=== PATIENT | female | born 1935 | race Caucasian/White ===

== ENCOUNTER 2020-10-14 01:35 | Inpatient (IN) | payer MEDICARE, OTHER, SELFPAY ==
[2020-10-14] VITALS (71 sets, daily range): BP systolic 75–212; BP diastolic 47–108; PULSE 44–87; RESP 12–23; TEMP 36.8; O2SAT 89–99; BMI 25.7
--- NOTE | 2020-10-14 02:02 | CTR_ITS ---
PROCEDURE INFORMATION: Exam: CT Abdomen And Pelvis With Contrast Exam date and time: 10/14/2020 2:43 AM Age: 85 years old Clinical indication: Abdominal pain; Generalized; Prior surgery; Surgery date: 6+ months; Surgery type: Gb, hyst; Patient HX: C/O abd pain w n/v then coded; Additional info: Vomiting, abdominal pain TECHNIQUE: Imaging protocol: Computed tomography of the abdomen and pelvis with contrast. Radiation optimization: All CT scans at this facility use at least one of these dose optimization techniques: automated exposure control; mA and/or kV adjustment per patient size (includes targeted exams where dose is matched to clinical indication); or iterative reconstruction. Contrast material: VISI 320; Contrast volume: 95 ml; Contrast route: INTRAVENOUS (IV); COMPARISON: No relevant prior studies available. RADIATION DOSE METRICS: Total DLP (mGy-cm): 1430.27 FINDINGS: Liver: Normal. No mass. Gallbladder and bile ducts: Status post cholecystectomy. There is intra and extrahepatic biliary dilatation seen, the common bile duct measuring 9.7 mm in its midportion. Pancreas: Normal. No ductal dilation. Spleen: Numerous calcifications are seen within the spleen compatible with calcified granulomas. Adrenal glands: Normal. No mass. Kidneys and ureters: Normal. No hydronephrosis. Stomach and bowel: There is a prominent duodenal diverticulum present measuring 2.3 x 3.7 x 3.5 cm located near the ampulla possibly causing extrinsic biliary obstruction. Appendix: The appendix is not seen in today's examination. There are no inflammatory changes seen to suggest appendicitis. Intraperitoneal space: Unremarkable. No free air. No significant fluid collection. Vasculature: Unremarkable. No abdominal aortic aneurysm. Lymph nodes: Unremarkable. No enlarged lymph nodes. Urinary bladder: Pierson catheter is present. The bladder appears decompressed. Reproductive: Status post hysterectomy. Bones/joints: Unremarkable. No acute fracture. Soft tissues: Unremarkable. CT/CT abdomen pelvis w con* [id number] IMPRESSION: 1. There are no acute abdominal findings. 2. 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 Radiation Dose CTDIVOL = (mGy): DLP = 1430.27 (mGy-cm)
--- NOTE | 2020-10-14 02:02 | CTR_ITS ---
PROCEDURE INFORMATION: Exam: CT Head Without Contrast Exam date and time: 10/14/2020 2:43 AM Age: 85 years old Clinical indication: Alteration of consciousness; Other: Unresponsive; Patient HX: Post code TECHNIQUE: Imaging protocol: Computed tomography of the head without contrast. Radiation optimization: All CT scans at this facility use at least one of these dose optimization techniques: automated exposure control; mA and/or kV adjustment per patient size (includes targeted exams where dose is matched to clinical indication); or iterative reconstruction. COMPARISON: No relevant prior studies available. RADIATION DOSE METRICS: Total DLP (mGy-cm): 846.98 FINDINGS: Brain: There is moderate diffuse cerebral atrophy. Patchy areas of hypoattenuation are seen in the deep white matter of the cerebral hemispheres bilaterally compatible with deep white matter microvascular disease. Focal hypoattenuation seen within the caudate head on the right compatible with a chronic lacunar infarction. Cerebral ventricles: No ventriculomegaly. Bones/joints: Unremarkable. No acute fracture. Paranasal sinuses: 5 mm convexity is seen on the posterior aspect of the right maxillary sinus compatible with a small mucous retention cyst. Mastoid air cells: Visualized mastoid air cells are well aerated. Soft tissues: Unremarkable. CT/CT head wo con* [id number] IMPRESSION: There are no acute intracranial findings. Radiation Dose CTDIVOL = (mGy): DLP = 846.98 (mGy-cm)
--- NOTE | 2020-10-14 02:02 | XRR_ITS ---
PROCEDURE INFORMATION: Exam: XR Chest Exam date and time: 10/14/2020 2:15 AM Age: 85 years old Clinical indication: Device placement; Ett placement (vent status); Patient HX: Post code et and og placement; Additional info: Unresponsive TECHNIQUE: Imaging protocol: XR of the chest. Views: 1 view. COMPARISON: CR Chest 1 [place] [id number] 01/21/2018 2:52 PM FINDINGS: Tubes, catheters and devices: An endotracheal tube is placed with its tip approximately 4.2 cm from the lidia. A orogastric tube is present with its tip at least in the proximal stomach. Transcutaneous pacemaker leads overlie the left hemithorax. EKG leads overlie the chest. Lungs: There is some indistinctness of the pulmonary vasculature mild peribronchial cuffing and increased interstitial opacities present in the lower hemithoraces, findings suggesting pulmonary edema. Pleural spaces: Unremarkable. No pleural effusion. No pneumothorax. Heart/Mediastinum: Unremarkable. No cardiomegaly. Bones/joints: Unremarkable. XR/XR chest 1V portable [id number] IMPRESSION: 1. Endotracheal tube tip 4.2 cm from the lidia. 2. Orogastric tube with tip at least in proximal stomach. 3. Findings suggesting pulmonary edema.
--- NOTE | 2020-10-14 02:02 | ECG_ITS ---
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1935 Requested By: Luis Espino Order Number: [id number] Nikki MD: TIN OSBORNE Measurements Intervals [place] Rate: 55 P: 73 IL: 140 QRS: -44 QRSD: 114 T: 87 QT: 478 QTc: 461 Interpretive Statements SINUS BRADYCARDIA LEFT AXIS DEVIATION [QRS AXIS < -30] INCOMPLETE RIGHT BUNDLE BRANCH BLOCK [90+ ms QRS DURATION, TERMINAL R IN V1/V2, 40+ ms S IN I/aVL/V4/V5/V6] LEFT VENTRICULAR HYPERTROPHY AND ST-T CHANGE [VOLTAGE CRITERIA PLUS ST/T ABNORMALITY] Compared to ECG 01/22/2018 05:57:59 Left-axis deviation now present Sinus rhythm no longer present Left anterior fascicular block no longer present ST (T wave) deviation still present Electronically Signed On 10-14-2020 22:24:25 CDT by TIN OSBORNE [id number]
[2020-10-14] MEDS: propofol 1,000 MG/100 ML INJ 8.2 MG (02:14)
[2020-10-14] MEDS: vecuronium 10 mg SDV IVP (02:29)
[2020-10-14 02:33] LABS: Add Urine Microscopic? NO; Charge for UA Resulting for Rev
[2020-10-14] MEDS: DOPamine drip 400 MG/250 ML PREMIX 12.8 MG IV ×2 (02:36→07:53)
[2020-10-14 02:43] LABS: Basophils % 0.3 %; Eosinophils # 0.1 10^3/uL (0.0-0.8); Eosinophils % 1.1 %; Hematocrit 40.2 % (37.0-47.0); Hemoglobin 12.6 g/dL (11.5-15.3); Lymphocytes # 2.3 10^3/uL (0.8-4.8); Mean Corpuscular HGB Conc 31.3 g/dL (30.0-36.0); Mean Corpuscular Volume 92.4 fL (81-99); Mean Platelet Volume 11.8 fL (7.4-10.4); Monocytes # 0.6 10^3/uL (0.2-0.9); Monocytes % 5.4 %; Neutrophils # 7.25 10^3/uL (1.8-7.7); Neutrophils % 69.6 %; Nucleated Red Blood Cells % 0 %; Platelet Count 193 10^3/cmm (130-400); Red Blood Count 4.35 10^6/uL (4.1-5.3); Red Cell Distribution Width 15.1 % (12.1-15.1); White Blood Count 10.4 10^3/uL (4.0-10.0)
--- NOTE | 2020-10-14 02:49 | W.ED.NAVMDI ---
HPI - Nausea/Vomiting/Diarrhea General: Chief complaint: Nausea/Vomiting/Diarrhea Stated complaint: n/v Time Seen by Provider: 10/14/20 01:40 History of Present Illness: HPI Narrative: 85-year-old female presents by EMS from home. Her main complaint was nausea and vomiting. She had been sick a couple of times at home, and gotten generally weak. She did complain of some belly pain as well. She is lethargic on exam, and only answering some questions. She received 4 mg of Zofran only IV on the way here. No vomiting since then. He does state that she has had a hysterectomy, appendectomy, and cholecystectomy in the past. MD elicited complaint: nausea, vomiting and abdominal pain Onset (ago): hour(s) Associated nausea: Yes Associated abdominal pain: Yes Location of pain: Diffuse Radiation: diffuse Pain consistency: constant Severity: moderate Exacerbating factors: movement Relieving factors: none Associated symtoms: Reports altered mental status (Lethargy), nausea and weakness (Generalized); Denies chest pain, cough, fevers/chills, rash or short of breath Review of Systems General: Reports: ROS unobtainable due to mental status Card: Denies: chest pain GI: Reports: nausea PFSH ED PFSH: Medical History ASHD (arteriosclerotic heart disease) CAD (coronary artery disease) LAD stent Dyslipidemia HTN (hypertension) Shingles Surgical History S/P appendectomy S/P cholecystectomy S/P hysterectomy S/P shoulder replacement S/P shoulder surgery Stented coronary artery Family History Father CAD (coronary artery disease) Myocardial infarction Sister CAD (coronary artery disease) Mother Hypertension Social History Smoking and tobacco status: never smoked Household members: spouse Marital status: Physical Exam Const: EXAM LIMITATIONS: altered mental status (Lethargy) GENERAL APPEARANCE: lethargic ORIENTATION/CONSCIOUSNESS: Yes oriented to person, Yes oriented to place and Yes lethargic Chest: COMMONS NORMALS: normal inspection of the chest Resp: COMMON NORMALS: normal respiratory effort, No use of accessory muscles and clear to auscultation bilaterally AUSCULTATION: clear to auscultation bilaterally Cardio: COMMON NORMALS: regular rate and regular rhythm RATE: regular rate RHYTHM: regular rhythm GI: COMMON NORMALS: Normal to inspection, nondistended, normoactive bowel sounds present and Soft to palpation PALPATION: Yes Soft to palpation and Yes Tenderness to palpation present (GI) (diffuse) Neuro: COMMON NORMALS: moves all extremities SENSORIUM/ORIENTATION: Yes oriented to person, Yes oriented to place and Yes lethargic SPEECH: speech normal Procedures Intubation Time out performed: No sedative: Etomidate Mg Given: 20 paralytic: Succinylcholine Mg Given: 100 Laryngoscope: Wendy (4) ET Tube Size: 8 ET Tube Uncuffed: No Tube Secured Depth (cm): 22 Tube Secured Location: lips Tube Placement Confirmation: visualized tube passing through cords, equal breath sounds bilaterally, no breath sounds over epigastrium and confirmation by capnometry Patient Tolerated Procedure: well and no complications Intubation Complications: none Course Consultations: Consultation #1: Raffi Consultation #2: Arabella Vital Signs: Vital signs: Vital Signs Temperature 98.2 F 10/14/20 01:35 Pulse Rate 57 L 10/14/20 06:08 Respiratory Rate 14 10/14/20 06:30 Blood Pressure 122/71 10/14/20 06:08 Pulse Oximetry 95 10/14/20 06:30 MDM - Nausea/Vomiting/Diarrhea MDM Narrative: Medical decision making narrative: 85-year-old female presented with nausea and vomiting. She complained of some belly pain as well. She was a bit lethargic on exam, but able to answer questions. After my examination, she had gotten up to use the bedside and got back in bed with some nursing help. She was hypertensive on arrival. She was talking to one of the nurses, when she suddenly went unresponsive. The patient was found not to have a pulse. CPR was started immediately. Respirations were started with a bag valve mask. She was given 1 mg of epinephrine. Following this, she began to spontaneously breathe, and had a rhythm and first rhythm check of sinus tachycardia. First blood pressure was hypertensive. She was sedated with propofol and fentanyl. She then has become bradycardic and hypotensive. CTs were ordered of the head abdomen and pelvis. They are negative. Her white blood cell count is 10.4. 1112.6. Potassium is 2.8. Her first troponin, which is done after CPR was started is in the mid 200s. He does have a history of coronary disease with stent to the LAD in 2018. Her original presentation is odd given what happened after arrival. Given her troponin elevation, and history, consulted cardiology. She has no ST changes on 2 EKGs. She shows a sinus rhythm. Cardiology recommendations were to admit to ICU. No cath immediately. The hospitalist has come down to see the patient in the ER, and will admit to ICU. Lab Data: Labs: Lab Results 10/14/20 10/14/20 10/14/20 Range/Units 02:16 02:37 02:37 WBC 10.4 H (4.0-10.0) 10^3/ uL RBC 4.35 (4.1-5.3) 10^6/u L Hgb 12.6 (11.5-15.3) g/dL Hct 40.2 (37.0-47.0) % MCV 92.4 (81-99) fL MCH 29.0 (28.0-34.0) pg MCHC 31.3 (30.0-36.0) g/dL RDW 15.1 (12.1-15.1) % Plt Count 193 (130-400) 10^3/c mm MPV 11.8 H (7.4-10.4) fL Neut % (Auto) 69.6 % Lymph % (Auto) 22.0 % [place] % (Auto) 5.4 % Eos % (Auto) 1.1 % Baso % (Auto) 0.3 % Neut # (Auto) 7.25 (1.8-7.7) 10^3/u L Lymph # (Auto) 2.3 (0.8-4.8) 10^3/u L [place] # (Auto) 0.6 (0.2-0.9) 10^3/u L Eos # (Auto) 0.1 (0.0-0.8) 10^3/u L Baso # (Auto) 0.0 (0.0-0.1) 10^3/u L Nucleated RBC % (a uto) 0 % Nucleated RBCs # 0.0 /100WBC D-Dimer (0-0.59) ug/mIFE U Specimen Type Sample Site ABG pH (7.35-7.45) ABG pCO2 (35-45) mmHg ABG pO2 (80.0-100.0) mmH g ABG HCO3 (22-26) mmol/L ABG Base Excess (-2.0-2.0) mmol/ L Aries Test Hematocrit (37-47) % O2 Delivery Device O2 Liters/Min FiO2 % Tidal Volume PEEP cmH20 Manager Balance ID Sodium 141 (136-145) mmol/L Potassium 2.8 L* (3.5-5.1) mmol/L Chloride 102 (98-107) mmol/L Carbon Dioxide 24 (22-29) mmol/L Anion Gap 17.8 (5-19) BUN 18 (8-23) mg/dL Creatinine 0.8 (0.5-0.9) mg/dL GFR Calculation Not Reportable Glucose 181 H (65-115) mg/dL Calculated Osmolal ity 298 H (285-295) mOsm/k g Lactate (0.5-2.2) mmol/L Calcium 8.0 L (8.5-10.5) mg/dL Magnesium (1.7-2.3) mg/dL Total Bilirubin 0.6 (0.15-1.2) mg/dL AST 46 H (0-32) U/L ALT 33 (0-33) U/L Alkaline Phosphata se 97 (35-105) IU/L Creatine Kinase 84 (26-192) U/L Troponin T Baselin e (0-10) ng/L C-Reactive Protein 8.2 H (0.0-4.9) mg/L NT-Pro-B Natriuret Pep 5927 H (0-450) pg/mL Total Protein 6.1 L (6.6-8.7) g/dL Albumin 4.0 (3.5-5.2) g/dL Globulin 2.1 (1.3-4.6) g/dL Lipase 32 (13-60) U/L Urine Color Straw (Yellow) Urine Appearance Clear (CLEAR) Urine pH 7 (5-7) Ur Specific Gravit y 1.005 (1.005-1.030) Urine Protein Neg (Negative) Urine Glucose (UA) Norm (Normal) Urine Ketones Negative (Negative) Urine Blood Neg (Negative) Urine Nitrate Negative (Negative) Urine Bilirubin Neg (Negative) Urine Urobilinogen Norm (Negative) mg/dL Ur Leukocyte Angelia ase Negative (Negative) 10/14/20 10/14/20 10/14/20 Range/Units 02:37 02:37 02:37 WBC (4.0-10.0) 10^3/ uL RBC (4.1-5.3) 10^6/u L Hgb (11.5-15.3) g/dL Hct (37.0-47.0) % MCV (81-99) fL MCH (28.0-34.0) pg MCHC (30.0-36.0) g/dL RDW (12.1-15.1) % Plt Count (130-400) 10^3/c mm MPV (7.4-10.4) fL Neut % (Auto) % Lymph % (Auto) % [place] % (Auto) % Eos % (Auto) % Baso % (Auto) % Neut # (Auto) (1.8-7.7) 10^3/u L Lymph # (Auto) (0.8-4.8) 10^3/u L [place] # (Auto) (0.2-0.9) 10^3/u L Eos # (Auto) (0.0-0.8) 10^3/u L Baso # (Auto) (0.0-0.1) 10^3/u L Nucleated RBC % (a uto) % Nucleated RBCs # /100WBC D-Dimer 8.50 H (0-0.59) ug/mIFE U Specimen Type Sample Site ABG pH (7.35-7.45) ABG pCO2 (35-45) mmHg ABG pO2 (80.0-100.0) mmH g ABG HCO3 (22-26) mmol/L ABG Base Excess (-2.0-2.0) mmol/ L Aries Test Hematocrit (37-47) % O2 Delivery Device O2 Liters/Min FiO2 % Tidal Volume PEEP cmH20 Manager Balance ID Sodium (136-145) mmol/L Potassium (3.5-5.1) mmol/L Chloride (98-107) mmol/L Carbon Dioxide (22-29) mmol/L Anion Gap (5-19) BUN (8-23) mg/dL Creatinine (0.5-0.9) mg/dL GFR Calculation Glucose (65-115) mg/dL Calculated Osmolal ity (285-295) mOsm/k g Lactate 3.6 H (0.5-2.2) mmol/L Calcium (8.5-10.5) mg/dL Magnesium (1.7-2.3) mg/dL Total Bilirubin (0.15-1.2) mg/dL AST (0-32) U/L ALT (0-33) U/L Alkaline Phosphata se (35-105) IU/L Creatine Kinase (26-192) U/L Troponin T Baselin e 246 H* (0-10) ng/L C-Reactive Protein (0.0-4.9) mg/L NT-Pro-B Natriuret Pep (0-450) pg/mL Total Protein (6.6-8.7) g/dL Albumin (3.5-5.2) g/dL Globulin (1.3-4.6) g/dL Lipase (13-60) U/L Urine Color (Yellow) Urine Appearance (CLEAR) Urine pH (5-7) Ur Specific Gravit y (1.005-1.030) Urine Protein (Negative) Urine Glucose (UA) (Normal) Urine Ketones (Negative) Urine Blood (Negative) Urine Nitrate (Negative) Urine Bilirubin (Negative) Urine Urobilinogen (Negative) mg/dL Ur Leukocyte Angelia ase (Negative) 10/14/20 10/14/20 10/14/20 Range/Units 02:37 03:40 05:10 WBC (4.0-10.0) 10^3/ uL RBC (4.1-5.3) 10^6/u L Hgb (11.5-15.3) g/dL Hct (37.0-47.0) % MCV (81-99) fL MCH (28.0-34.0) pg MCHC (30.0-36.0) g/dL RDW (12.1-15.1) % Plt Count (130-400) 10^3/c mm MPV (7.4-10.4) fL Neut % (Auto) % Lymph % (Auto) % [place] % (Auto) % Eos % (Auto) % Baso % (Auto) % Neut # (Auto) (1.8-7.7) 10^3/u L Lymph # (Auto) (0.8-4.8) 10^3/u L [place] # (Auto) (0.2-0.9) 10^3/u L Eos # (Auto) (0.0-0.8) 10^3/u L Baso # (Auto) (0.0-0.1) 10^3/u L Nucleated RBC % (a uto) % Nucleated RBCs # /100WBC D-Dimer (0-0.59) ug/mIFE U Specimen Type Arterial Collet Making Machine Operator Sample Site Radial, right Collet Making Machine Operator ABG pH 7.34 L Collet Making Machine Operator (7.35-7.45) ABG pCO2 51.0 H Collet Making Machine Operator (35-45) mmHg ABG pO2 67.8 L Collet Making Machine Operator (80.0-100.0) mmH g ABG HCO3 27.7 H Collet Making Machine Operator (22-26) mmol/L ABG Base Excess 1.1 Collet Making Machine Operator (-2.0-2.0) mmol/ L Aries Test Pos Collet Making Machine Operator Hematocrit 44.2 Collet Making Machine Operator (37-47) % O2 Delivery Device Vent Collet Making Machine Operator O2 Liters/Min Collet Making Machine Operator FiO2 40.0 % Tidal Volume 0.35 PEEP 8.0 cmH20 Manager Balance ID [email or web address] Collet Making Machine Operator Sodium (136-145) mmol/L Potassium (3.5-5.1) mmol/L Chloride (98-107) mmol/L Carbon Dioxide (22-29) mmol/L Anion Gap (5-19) BUN (8-23) mg/dL Creatinine (0.5-0.9) mg/dL GFR Calculation Glucose (65-115) mg/dL Calculated Osmolal ity (285-295) mOsm/k g Lactate (0.5-2.2) mmol/L Calcium (8.5-10.5) mg/dL Magnesium 1.7 (1.7-2.3) mg/dL Total Bilirubin (0.15-1.2) mg/dL AST (0-32) U/L ALT (0-33) U/L Alkaline Phosphata se (35-105) IU/L Creatine Kinase (26-192) U/L Troponin T Baselin e (0-10) ng/L C-Reactive Protein (0.0-4.9) mg/L NT-Pro-B Natriuret Pep (0-450) pg/mL Total Protein (6.6-8.7) g/dL Albumin (3.5-5.2) g/dL Globulin (1.3-4.6) g/dL Lipase (13-60) U/L Urine Color (Yellow) Urine Appearance (CLEAR) Urine pH (5-7) Ur Specific Gravit y (1.005-1.030) Urine Protein (Negative) Urine Glucose (UA) (Normal) Urine Ketones (Negative) Urine Blood (Negative) Urine Nitrate (Negative) Urine Bilirubin (Negative) Urine Urobilinogen (Negative) mg/dL Ur Leukocyte Angelia ase (Negative) Critical Care Time Critical Care Time: Critical Care Time: Yes Total Critical Care Time: 50 Attestation: This case had a high probability of a clinically significant, sudden, or life threatening deterioration of this patient's condition which required my full and direct attention, intervention and personal management. Discharge Plan Discharge Patient Disposition: Admitted As Inpatient Admit Provider: Phoebe Nugent Clinical Impression: PEA (Pulseless electrical activity), NSTEMI (non-ST elevated myocardial infarction), Hypokalemia Condition: Critical Coding Level of Care Code ED Legal Office Administrator for Shann[place] Fwd Exam Detailed
[2020-10-14] MEDS: iodixanol 320 mg/mL 100mL Btl IV ×2 (02:57→14:32)
[2020-10-14 02:59] LABS: Bilirubin Urine Neg (Negative); Blood Urine Neg (Negative); Glucose Urine UA Norm (Normal); Ketones Urine Negative (Negative); Leukocyte Esterase Urine Negative (Negative); Nitrate Urine Negative (Negative); Protein Urine Neg (Negative); Specific Gravity, Urine 1.005 (1.005-1.030); Urine Appearance Clear (CLEAR); Urine Color Straw (Yellow); Urobilinogen Urine Norm (Negative); pH Urine 7 (5-7)
[2020-10-14 03:03] LABS: Lactate (Lactic Acid level) 3.6 mmol/L (0.5-2.2)
[2020-10-14 03:09] LABS: Troponin(5th) Baseline 246 ng/L (0-10)
[2020-10-14 03:13] LABS: Alanine Aminotransferase 33 U/L (0-33); Alkaline Phosphatase 97 IU/L (35-105); Anion Gap 17.8 (5-19); Aspartate Amino Transferase 46 U/L (0-32); Blood Urea Nitrogen 18 mg/dL (8-23); C Reactive Protein 8.2 mg/L (0.0-4.9); Carbon Dioxide 24 mmol/L (22-29); Chloride 102 mmol/L (98-107); Creatine Phosphokinase 84 U/L (26-192); Globulin 2.1 g/dL (1.3-4.6); Glucose 181 mg/dL (65-115); Lipase 32 U/L (13-60); NT Pro B Type Natriuretic Pept 5927 pg/mL (0-450); Osmolality Calculated 298 mOsm/kg (285-295); Sodium 141 mmol/L (136-145); Total Bilirubin 0.6 mg/dL (0.15-1.2); Total Protein 6.1 g/dL (6.6-8.7)
[2020-10-14 03:19] LABS: Potassium 2.8 mmol/L (3.5-5.1)
[2020-10-14 03:46] LABS: ABG PH Result 7.34 (7.35-7.45); Arterial Blood Gas Hematocrit 44.2 % (37-47); Base Excess ABG 1.1 mmol/L (-2.0-2.0); Blood Gas Allen Test Pos; Blood Gas Sample Site Radial, right; Blood Gas Sample Type Arterial; Blood Gas Tidal Volume 0.35; HCO3 ABG 27.7 mmol/L (22-26); Oxygen Device VENT; PO2 ABG 67.8 mmHg (80.0-100.0)
[2020-10-14] MEDS: sodium chloride 0.9% 1,000 ML 200 ML IV (03:50)
--- NOTE | 2020-10-14 04:02 | ECG_ITS ---
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1935 Requested By: Luis Espino Order Number: [id number] Nikki MD: TIN OSBORNE Measurements Intervals [place] Rate: 99 P: 76 SC: 166 QRS: -52 QRSD: 98 T: 94 QT: 342 QTc: 440 Interpretive Statements SINUS RHYTHM WITH OCCASIONAL SUPRAVENTRICULAR PREMATURE COMPLEXES POSSIBLE RIGHT ATRIAL ENLARGEMENT [0.25mV P WAVE] POSSIBLE LEFT ATRIAL ENLARGEMENT [-0.1mV P WAVE IN V1/V2] LEFT ANTERIOR FASCICULAR BLOCK [QRS AXIS <= -45, QR IN I, RS IN II] LEFT VENTRICULAR HYPERTROPHY AND ST-T CHANGE [VOLTAGE CRITERIA PLUS ST/T ABNORMALITY] Compared to ECG 01/22/2018 05:57:59 Incomplete right bundle-branch block no longer present ST (T wave) deviation still present Electronically Signed On 10-14-2020 22:26:58 CDT by TIN OSBORNE [id number] ilsa
--- NOTE | 2020-10-14 04:03 | PC.NURSE ---
Upon patient arrival to ER, patient was complaining of n/v with abdominal pain and headache. Patient was alert and oriented to person and place but not time. Patient requested to use bathroom and I brought a bedside commode to bedside and assisted patient to bedside commode. Patient was then assisted back to bed. Patient requested a blanket due to being cold. I walked to warmer and got patient blanket. SHARON Blackmon was in the room with patient at approx 0150. Patient became unresponsive with agonal respirations and had a weak pulse at approx 0152. Dr. Perry called into room. At 0154 patient became pulseless and apneic and brigid romero was called.
[2020-10-14] MEDS: potassium chloride premix 100 ML 25 MEQ IV ×2 (04:17→10:30)
--- NOTE | 2020-10-14 04:42 | PC.NURSE ---
This nurse walked into patients room at 0149 and started asking patient assessment questions. patient was awake and responding to nurse at this time. patient answered a few questions from nurse then stopped talking and closed her eyes. SHARON Presley entered room and patient became unresponsive with agonal respirations with weak pulse at 0152. Dr Perry was called to room. At 0154 patient became pulseless and brigid romero was called.
--- NOTE | 2020-10-14 04:45 | P.HP_ITS ---
Providers/Chief Complaint Primary Care Provider: Shyam Dumont DO Chief Complaint: n/v History of Present Illness Vannesa Stanford is a 85 year old female with established history of coronary disease status post stent in LAD(2010 was found to have a 50% stenosis in the mid LAD prior to previously placed stent. She had 20% in-stent stenosis and then a 50% stenosis in the distal LAD. She had a small diagonal branch exhibiting a 60% ostial narrowing. She had mild plaquing in a circumflex system. The right coronary artery was a tiny, nondominant vessel. ) Presented today with chief complaint of nausea and vomiting. Patient presented from her home with chief complaint of nausea and vomiting, in total she has had 3-4 episodes, in the ER she received fluid resuscitation with Zofran, initially she was very lethargic, ER physician just stepped out to place some orders and nurse was trying to assist her to use bedside commode when she became unresponsive and lost her pulse, immediately CPR was initiated, she received 1 dose of epinephrine after 3 minutes ROSC was obtained, her breathing was agonal, she had gag reflex, however was intubated by Dr. Perry, initial blood pressure 240/120 mmHg which dropped and necessitated vasopressors currently she is on dopamine blood pressure 129/76MMHG heart rate 71, saturating 97% on ventilator, hypokalemia 2.8 noted EKG showing sinus rhythm without ST elevation, troponin was drawn after her code which is aboVE 200, case was discussed with cardiology, Dr. Rankin did not recommend angiogram. After ROSC, gag reflex noted, she was moving her extremities and was agitated, TTM not pursued. For sedation she was put on fentanyl and propofol At the time of my evaluation she was saturating well on CMV settings 400 FiO2 40% PEEP of 5 blood pressure 122/76mmhg, propofol at the bedside, endotracheal tube size 8, at lip bite 22 cm patient has right IO that was placed during the code which will be removed in the ER, first dose of therapeutic Lovenox given in the ER, ruled in for NSTEMI, potassium repleted , CT head, abdomen pelvis and chest x-ray result reviewed I called her Mr. He Stanford, he is stating that Ms. Stanford was complaining of chest pain on exertion for quite some time but last night she was experiencing multiple episodes of emesis, he is not sure whether she had any chest pain yesterday but she was diaphoretic and hence brought to the ER for further evaluation. Review of Systems General: Reports: ROS unobtainable due to endotracheal tube Medications/Allergies Home Medications Medication Instructions Recorded Confirmed Last Taken Type aspirin 81 mg tablet,delayed 81 mg PO DAILY 09/13/19 04/25/20 Unknown History release atenolol 50 mg tablet 50 mg PO BID 09/13/19 04/25/20 Unknown History cholecalciferol (vitamin D3) 100 4,000 unit PO DAILY 09/13/19 04/25/20 Unknown History mcg (4,000 unit) tablet fluoxetine 20 mg tablet 20 mg PO DAILY 09/13/19 04/25/20 Unknown History irbesartan 300 mg tablet 300 mg PO DAILY 30 Days #30 tab 10/05/19 04/25/20 Unknown Rx donepezil 5 mg tablet 5 mg PO DAILY 04/25/20 04/25/20 Unknown History Allergies Allergy/AdvReac Type Severity Reaction Status Date / Time codeine Allergy Unknown Unknown Verified 10/14/20 02:31 morphine Allergy Unknown Unknown Verified 10/14/20 02:31 PFSH Acute PFSH: Medical History ASHD (arteriosclerotic heart disease) CAD (coronary artery disease) LAD stent Dyslipidemia HTN (hypertension) Shingles Surgical History S/P appendectomy S/P cholecystectomy S/P hysterectomy S/P shoulder replacement S/P shoulder surgery Stented coronary artery Family History Father CAD (coronary artery disease) Myocardial infarction Sister CAD (coronary artery disease) Mother Hypertension Social History Smoking and tobacco status: never smoked Household members: spouse Marital status: Vitals/I&O/Wt Last Vital Signs Temp 98.2 F 10/14/20 01:35 Pulse 68 10/14/20 03:45 Resp 16 10/14/20 04:00 BP 111/65 10/14/20 03:45 Pulse Ox 91 10/14/20 03:45 10/13/20 10/13/20 10/14/20 14:59 22:59 06:59 Intake Total 12.629 / 12.629 Balance 12.629 / 12.629 Weight last 48 hrs Weight 68.039 kg Physical Exam Narrative: EXAM NARRATIVE: elderly female Intubated and sedated Currently on mechanical ventilator status post PEA Right IO Propofol running through peripheral IV Cold extremities, no active signs of ischemic ulcers S1, S2 no murmur appreciated, sinus bradycardia Assisted breath sounds currently on mechanical ventilator CMV setting PEEP 5 FiO2 40% tidal volume 400, endotracheal tube size 8 secured at lip by 22 cm Neuro exam limited currently sedated and intubated, however did show black reflux and was moving her extremities after intubation that required sedation with propofol and fentanyl Urinary Catheter Management^: Pierson: Cath Placed During This Visit: yes Urinary Catheter Date of Insertion: 10/14/20 Urinary Catheter Time of Insertion: 02:16 Data : 10/14/20 02:37 10/14/20 02:37 A&P Assessment and plan (1) PEA (Pulseless electrical activity): Status: Acute (2) Hypokalemia: Status: Acute (3) Respiratory failure: Status: Acute (4) NSTEMI (non-ST elevated myocardial infarction): Status: Acute Additional A&P Information PEA &Respiratory failure requiring mechanical ventilator Acute hypoxic hypercarbic respiratory failure, pulmonary edema with underlying hypertensive emergency Ruled in for NSTEMI Started ACS protocol, rule out PE will request D-dimer, relative hypoxia and hypokalemia definitely contributing factors for her PEA, Serial EKG and troponin, case was discussed with cardiology, no urgent angiogram recommended After ROSC, gag reflex noted, she was moving her extremities and was agitated required sedation with propofol and fentanyl, TTM protocol not pursued Etiology seems to be NSTEMI, hypoxia, hypokalemia, hypertensive emergency, she has history of stent in LAD in 2009, EKG showing sinus bradycardia, troponin above 200, started therapeutic dose of Lovenox along aspirin Plavix, hold off on adding Toprol because of bradycardia and lisinopril because of hypotension CT head unremarkable Would use Levophed and dopamine for now, will start Lasix once her blood pressure is better, chest x-ray consistent with pulmonary edema echo reveals preserved ejection fraction grade 1 diastolic dysfunction mild aortic and mitral valve regurgitation, echo 12 revealed preserved ejection fraction grade 1 diastolic dysfunction mild aortic and mitral regurgitation, most likely will need coronary angiogram, cardiology consulted Full code, discussed with her Family updated Start tube feeding within 24 hours DVT prophylaxis not indicated due to therapeutic use Lovenox Attestations Medical Necessity Statement*: Anticipating stay in the hospital cross more than 2 midnights, currently intubated and sedated had a PEA for 3 minutes in the ER Time Spent in Patient Care: 40mins Coding Level of Care Code Acute [employer] 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
[2020-10-14] MEDS: enoxaparin 80 mg/0.8 mL Syringe 70 MG SUBCUT ×2 (05:25→17:26)
[2020-10-14 05:48] LABS: Magnesium 1.7 mg/dL (1.7-2.3)
--- NOTE | 2020-10-14 05:59 | USCV_ITS ---
Abdoulaye Vannesa Age: 85 Gender: F : 1935 Exam Date: 10/14/2020 11:19 Ordering Phys: Phoebe Nugent MD Technologist: Neida Raphael Exam Location: [facility] – [place] Indication: Post code BP: 122 / 71 HR: 53 Rhythm: Sinus Technical Quality: Adequate MEASUREMENTS (Male / Female) Normal Values 2D ECHO LV Diastolic Diameter PLAX 4.0 cm 4.2 - 5.9 / 3.9 - 5.3 cm LV Systolic Diameter PLAX 3.1 cm LV Chamber Size 3.6 cm IVS Diastolic Thickness 1.8 cm 0.6 - 1.0 / 0.6 - 0.9 cm IVS Systolic Thickness 2.0 cm LVPW Diastolic Thickness 1.2 cm 0.6 - 1.0 / 0.6 - 0.9 cm LVPW Systolic Thickness 2.0 cm RV Chamber Size 2.8 cm LVOT Diameter 1.5 cm LV Ejection Fraction 2D Teich 45.0 % LV Ejection Fraction MOD 2C 58.9 % LV Ejection Fraction 2C AL 62.3 % LA Diameter 3.5 cm LA Width 4.5 cm LA Height 6.3 cm RA Width 2.5 cm RA Height 4.9 cm Aorta at Sinotubular Diameter 2.4 cm M-MODE LV Diastolic Diameter MM 5.0 cm 4.2 - 5.9 / 3.9 - 5.3 cm LV Systolic Diameter MM 3.9 cm LV Ejection Fraction MM Teich 42.4 % IVS Diastolic Thickness MM 1.1 cm 0.6 - 1.0 / 0.6 - 0.9 cm IVS Systolic Thickness MM 1.3 cm LVPW Diastolic Thickness MM 1.4 cm 0.6 - 1.0 / 0.6 - 0.9 cm LVPW Systolic Thickness MM 1.8 cm Aortic Annulus Diameter 3.3 cm LA Ao Ratio MM 1.2 MV E Point Septal Separation 0.8 cm DOPPLER AV Peak Velocity 422.8 cm/s LVOT Peak Velocity 98.0 cm/s AV Area Cont Eq vti 0.4 cm squared AV Area Cont Eq pk 0.4 cm squared MV Peak Velocity 104.0 cm/s MV Area PHT 3.1 cm squared Mitral E to A Ratio 1.4 MV E' Velocity 55.0 cm/s Mitral E to MV E' Ratio 28.4 Mitral E to LV E' Lateral Ratio 22.9 Mitral E to LV E' Septal Ratio 39.0 TV Peak E Velocity 30.0 cm/s Right Atrial Pressure 15.0 mmHg PV Peak Velocity 80.0 cm/s QpQs Shunt Ratio 1.9 RV Acceleration Time 0.1 s RV Ejection Time 0.3 s RV AcT/ET 0.3 FINDINGS Left Ventricle Normal left ventricular cavity size. Severe left ventricular hypertrophy of concentric type. Normal left ventricular systolic function. Left ventricular ejection fraction is estimated at 55 %. Grade II/IV diastolic dysfunction, moderately elevated filling pressures. Right Ventricle The right ventricle is normal in size and function. Right Atrium The right atrium is normal in size. Left Atrium Moderately increased left atrial size. Mitral Valve Severely thickened mitral valve. Severe mitral annular calcification. Aortic Valve Severe aortic valve calcification. Critical aortic valve stenosis, mean gradient 43.8 mmHg, KEIRA 0.36 cm squared. Velocity across the aortic valve is 4.2 m/s.mild aortic valve regurgitation. Tricuspid Valve No tricuspid valve regurgitation. Pulmonic Valve Structurally normal pulmonic valve without significant stenosis. There is no pulmonic regurgitation. Pericardium Normal pericardium without effusion. Aorta Normal ascending aorta dimension. CONCLUSIONS 1-Normal left ventricular cavity size. Severe left ventricular hypertrophy of concentric type. Normal left ventricular systolic function. Left ventricular ejection fraction is estimated at 55 %. Grade II/IV diastolic dysfunction, moderately elevated filling pressures. 2-Severe aortic valve calcification. Critical aortic valve stenosis, mean gradient 43.8 mmHg, KEIRA 0.36 cm squared. Velocity across the aortic valve is 4.2 m/s.mild aortic valve regurgitation. 3-Moderately increased left atrial size. 4-Severely thickened mitral valve. Severe mitral annular calcification. 5-Severe aortic valve calcification. Critical aortic valve stenosis, mean gradient 43.8 mmHg, KEIRA 0.36 cm squared. Velocity across the aortic valve is 4.2 m/s.mild aortic valve regurgitation. 6-No tricuspid valve regurgitation. 7-Right atrial pressure is around 20 mm of mercury. Please note that patient is on ventilator 8-There are no prior echocardiogram studies to compare. Phoebe Bell MD (Electronically Signed) Final Date: 14 Oct 2020 19:58 S
--- NOTE | 2020-10-14 06:22 | CTR_ITS ---
PROCEDURE INFORMATION: Exam: CTA Chest With Contrast Exam date and time: 10/14/2020 2:09 PM Age: 85 years old Clinical indication: Shortness of breath; Additional info: Pea TECHNIQUE: Imaging protocol: Computed tomographic angiography of the chest with contrast. 3D rendering (Not supervised by radiologist): MIP and/or 3D reconstructed images were created by the technologist. Radiation optimization: All CT scans at this facility use at least one of these dose optimization techniques: automated exposure control; mA and/or kV adjustment per patient size (includes targeted exams where dose is matched to clinical indication); or iterative reconstruction. Contrast material: VISIPAQUE 320; Contrast volume: 75 ml; Contrast route: INTRAVENOUS (IV); COMPARISON: CR XR chest 1V portable [id number] 10/14/2020 2:11 AM RADIATION DOSE METRICS: Total DLP (mGy-cm): 594.97 FINDINGS: Tubes, catheters and devices: ET tube tip terminates superior to the lidia. Distal G-tube tip is positioned in the stomach. Pulmonary arteries: Normal. No pulmonary emboli. Aorta: There are calcifications in the aortic and mitral valves. Lungs: There are pulmonary parenchymal calcifications consistent with remote granulomatous organism exposure. Pleural spaces: There are bilateral pleural effusions with underlying compressive atelectasis or infiltrate. Heart: Cardiomegaly. Multivessel atherosclerotic disease which involves the coronary arteries. Lymph nodes: There are calcified mediastinal and perihilar lymph nodes consistent with prior granulomatous exposure. Bones/joints: There are degenerative changes in the visualized spine. Soft tissues: Unremarkable. Other findings: Please see the CT scan of the abdomen for description of the upper abdomen. CT/CT angio chest PE protcl [id number] IMPRESSION: 1. No evidence for pulmonary embolus. 2. There are bilateral pleural effusions with underlying compressive atelectasis or infiltrate. In combination with cardiomegaly, findings raise concern for congestive heart failure. 3. Multivessel atherosclerotic disease which involves the coronary arteries. Radiation Dose CTDIVOL = (mGy): DLP = 594.97 (mGy-cm)
--- NOTE | 2020-10-14 07:13 | PC.NURSE ---
ASSUMING CARE Patient received from ER by RN and RT. 8.0 tube, 23 cm at lip, FiO2 40%, TV 400, Rate 14, PEEP 5. Patient is arousable to stimuli but does not follow commands. IO to right shoulder. Pierson catheter in place and draining. Dopamine running at 5 mcg/kg/min, propofol at 10 mcg/kg/min, fentanyl at 100 mcg/hour, and a k-rider running.
[2020-10-14 07:26] LABS: Thyroid Stimulating Hormone 6.36 uIU/mL (0.27-4.20)
[2020-10-14] MEDS: propofol 1,000 MG/100 ML INJ 10.2 MG IV ×3 (07:48→23:05)
[2020-10-14] MEDS: ipratropium-albuterol 3 mL Neb INHALATION ×2 (08:02→19:33)
--- NOTE | 2020-10-14 08:02 | ECG_ITS ---
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1935 Requested By: Luis Espino Order Number: [id number] Nikki MD: TIN OSBORNE Measurements Intervals [place] Rate: 52 P: 79 MI: 145 QRS: -38 QRSD: 105 T: 94 QT: 488 QTc: 454 Interpretive Statements SINUS BRADYCARDIA MARKED LEFT AXIS DEVIATION [QRS AXIS < -30] INCOMPLETE RIGHT BUNDLE BRANCH BLOCK [90+ ms QRS DURATION, TERMINAL R IN V1/V2, 40+ ms S IN I/aVL/V4/V5/V6] LEFT VENTRICULAR HYPERTROPHY AND ST-T CHANGE [VOLTAGE CRITERIA PLUS ST/T ABNORMALITY] POSSIBLE SEPTAL MYOCARDIAL INFARCTION [30 ms Q WAVE IN V1/V2], OF INDETERMINATE AGE Compared to ECG 10/14/2020 02:26:21 Myocardial infarct finding now present ST (T wave) deviation still present Electronically Signed On 10-14-2020 22:26:43 CDT by TIN OSBORNE [id number]
[2020-10-14] MEDS: atorvastatin 40 mg Tablet 80 MG PO (08:11)
[2020-10-14] MEDS: clopidogrel 75 mg Tablet PO (08:11)
[2020-10-14] MEDS: aspirin 81 mg EC Tablet PO (08:11)
[2020-10-14 09:10] LABS: Basophils # 0.1 10^3/uL (0.0-0.1); Basophils % 0.3 %; Eosinophils % 0.1 %; Hematocrit 46.2 % (37.0-47.0); Hemoglobin 14.4 g/dL (11.5-15.3); Lymphocytes # 1.5 10^3/uL (0.8-4.8); Lymphocytes % 8.9 %; Mean Corpuscular HGB Conc 31.2 g/dL (30.0-36.0); Mean Corpuscular Volume 93.1 fL (81-99); Mean Platelet Volume 11.9 fL (7.4-10.4); Monocytes # 1.8 10^3/uL (0.2-0.9); Monocytes % 10.5 %; Neutrophils # 13.78 10^3/uL (1.8-7.7); Neutrophils % 79.6 %; Nucleated Red Blood Cells % 0 %; Platelet Count 160 10^3/cmm (130-400); Red Blood Count 4.96 10^6/uL (4.1-5.3); Red Cell Distribution Width 15.3 % (12.1-15.1); White Blood Count 17.3 10^3/uL (4.0-10.0)
--- NOTE | 2020-10-14 10:05 | P.PN_ITS ---
Subjective Subjective: Interval history: Overnight labs and H&P reviewed, continues to have sinus bradycardia this morning with heart rate ranging between 50-60, remains intubated and on mechanical ventilation, vent settings currently at 30% FiO2/tidal volume 400/PEEP 5. Pending CTA of the chest. Continues to be on dopamine currently at 5 mics. 300 cc urine output in bag. 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, sedated EXT: No LE edema Urinary Catheter Management^: Pierson: Cath Placed During This Visit: yes Reason for Continuing Indwelling Catheter: Accurate Measurement of Urinary Output in Critically Ill Patients Urinary Catheter Date of Insertion: 10/14/20 Urinary Catheter Time of Insertion: 02:16 Data : 10/14/20 08:50 10/14/20 02:37 A&P Assessment and plan (1) PEA (Pulseless electrical activity): Status: Acute (2) Hypokalemia: Status: Acute (3) Respiratory failure: Status: Acute Qualifiers: Chronicity: acute Respiratory failure complication: hypoxia Qualified Code(s): J96.01 - Acute respiratory failure with hypoxia (4) NSTEMI (non-ST elevated myocardial infarction): Status: Acute (5) CHF (congestive heart failure): Status: Acute Qualifiers: Heart failure type: unspecified Heart failure chronicity: acute Qualified Code(s): I50.9 - Heart failure, unspecified Additional A&P Information 85 year old lady with PMH CAD s/p multiple stents presented to the ER yesterday with c/o intractable nausea and vomiting with a background history of having chest discomfort over the past week or so per family. While in the ER noted to have witnessed cardiac arrest with PEA, underwent CPR for about 3 minutes with ROSC. Remains intubated thereafter. Currently also on pressor support with dopamine. Labs obtained post CPR with elevated troponin at 200, difficult to a certain if patient initially presented with elevated troponins pointing towards NSTEMI versus of troponin are elevated post CPR. However given several past cardiac risk factors and history, presumed cardiac event. Continuing aspirin 81, Plavix, full dose Lovenox 1 mg/kg every 12 hours. D-dimer also noted to be elevated, symptoms could alternately be related to PE, pending CTA of the chest this afternoon. Currently on anticoagulation for the same. Echocardiogram pending. No current evolving EKG changes Plan for today is to continue management as above for ACS, evaluate for PE. Leukocytosis increased at 17, likely post CPR, per reported history no antecedent history of fever cough or dyspnea. Chest x-ray with pulmonary edema, likely related to CHF. Receiving 20 mg of IV Lasix today, monitor urine output closely. CT abdomen without signs of acute intra-abdominal issues Attestations Medical Necessity Statement*: s/p cardiac arrest, currently needs respiratoiry support with mechanical ventilation and pressor support for blood pressure Critical Care Time: The high probability of a clinically significant, sudden or life threatening deterioration of the patient's [cardiac, respiratory] system(s) required my full and direct attention, intervention and personal management. The critical care time is as shown. This time is in addition to time spent performing any reported procedures but includes the following: [x] Data and vital sign review and interpretation [x] Patient assessment, examination and intervention [x] Documentation [x] Medication orders and management Critical Care Time (min): 40 Coding Level of Care Code Acute Community Marketing Coordinator for g Fwd Diagnoses PEA (Pulseless electrical activity) I46.9 Hypokalemia E87.6 Respiratory failure J96.01 Chronicity: acute Respiratory failure complication: hypoxia NSTEMI (non-ST elevated myocardial infarction) I21.4 CHF (congestive heart failure) I50.9 Heart failure type: unspecified Heart failure chronicity: acute
[2020-10-14] MEDS: FUROsemide 10 mg/mL SDV 2mL 20 MG IVP (10:30)
[2020-10-14 10:56] LABS: Troponin T (5th) Once 802 ng/L (0-10)
[2020-10-14 10:56] LABS: ABG PCO2 38.1 mmHg (35-45); ABG PH Result 7.48 (7.35-7.45); Alveolar-Arterial Oxygen Gradi 7.7 mmHg (5-10); Arterial Blood Gas Hematocrit 42.1 % (37-47); Base Excess ABG 4.6 mmol/L (-2.0-2.0); Blood Gas Allen Test Pos; Blood Gas Operator Identificat GD; Blood Gas Sample Site Radial, right; Blood Gas Sample Type Arterial; Carboxyhemoglobin 0.7 %THgb (0.4-20.1); HCO3 ABG 28.3 mmol/L (22-26); HGB O2 Sat 93.1 % (95-100); Ionized Calcium Level - ABG 1.1 mmol/L (1.1-1.4); Methemoglobin 0.5 % (0.4-1.5); Oxygen Device VENT; Oxygen Saturation ABG 94.2; PO2 ABG 63.4 mmHg (80.0-100.0); Potassium Level - ABG 3.1 mmol/L (3.5-5.0); Total Hemoglobin 13.7 g/dL (12-16)
--- NOTE | 2020-10-14 10:59 | ECG_ITS ---
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: : 1935 Requested By: Nina Hayward Order Number: [id number] Reading MD: TIN OSBORNE Measurements Intervals [place] Rate: 56 P: 74 [place]: 158 QRS: -30 QRSD: 105 T: 102 QT: 519 QTc: 503 Interpretive Statements SINUS BRADYCARDIA BORDERLINE LEFT AXIS DEVIATION [QRS AXIS < -20] LEFT VENTRICULAR HYPERTROPHY AND ST-T CHANGE [VOLTAGE CRITERIA PLUS ST/T ABNORMALITY] Compared to ECG 10/14/2020 09:34:00 Incomplete right bundle-branch block no longer present Myocardial infarct finding no longer present ST (T wave) deviation still present Electronically Signed On 10-14-2020 22:23:27 CDT by TIN OSBORNE [email or web address] systemAdhysteriasumma [facility].[employer]/store/OM/[id number]
[2020-10-14 11:00] LABS: Influenza A by IFA Negative (Negative); Influenza B by IFA Negative (Negative)
[2020-10-14 11:01] LABS: SARS Covid-2 Antigen Negative (Negative)
[2020-10-14 11:23] LABS: Free T4 Free Thyroxine 1.31 ng/dL (0.82-1.77); T3 Free 2.7 PG/ML (2.0-4.4)
--- NOTE | 2020-10-14 12:19 | P.CONIM_ITS ---
Providers/Reason For Consult Consulting Physican/Specialty*: Cardiology Reason for Consult*: Cardiac arrest, shock Attending Physician: Nina Hayward MD Primary Care Provider: Shyam Dumont DO History of Present Illness History of Present Illness Vannesa Stanford is a 85 year old female past medical history significant for multiple medical problems including congestive heart failure, coronary cardiac disease, hypertension dyslipidemia presented with nausea vomiting to the ER with history of chest pain. In the ER she had witnessed PEA cardiac arrest required brief CPR she was intubated, no strips are available to me no other arrhythmia noted. Post intubation D-dimer white cell count with shift and troponin was elevated. Currently she is on pressors for hypotension. Twelve-lead EKG showed left axis deviation right bundle branch block incomplete and left ventricle hypertrophy with anterolateral inverted T wave could be repolarization abnormality. Review of Systems General: Reports: ROS unobtainable due to endotracheal tube and ROS unobtainable due to mental status Card: Denies: chest pain GI: Reports: nausea Meds/Allergies Home Medications and Allergies Home Medications Medication Instructions Recorded Confirmed Last Taken Type atenolol 50 mg tablet 50 mg PO BID 09/13/19 10/14/20 Unknown History cholecalciferol (vitamin D3) 100 4,000 unit PO DAILY 09/13/19 10/14/20 Unknown History mcg (4,000 unit) tablet fluoxetine 20 mg tablet 20 mg PO DAILY 09/13/19 10/14/20 Unknown History donepezil 5 mg tablet 5 mg PO DAILY 04/25/20 10/14/20 Unknown History aspirin [Aspir-81] 81 mg PO DAILY 10/14/20 10/14/20 Unknown History irbesartan 300 mg PO DAILY 10/14/20 10/14/20 Unknown History Allergies Allergy/AdvReac Type Severity Reaction Status Date / Time codeine Allergy Unknown Unknown Verified 10/14/20 02:31 morphine Allergy Unknown Unknown Verified 10/14/20 02:31 Current Medications Current Medications Generic Name Dose Route Start Last Admin Trade Name Freq PRN Reason Stop Dose Admin Albuterol/Ipratropium 3 ml 10/14/20 05:59 10/14/20 08:02 Ipratropium-Albuterol 3 Ml Neb INHALATION 3 ml Q6H PRN Administration SHORTNESS OF BREATH Aspirin 81 mg 10/14/20 09:00 10/14/20 08:11 Aspirin 81 Mg Ec Tablet PO 81 mg DAILY ANDREA Administration Atorvastatin Calcium 80 mg 10/14/20 09:00 10/14/20 08:11 Atorvastatin 40 Mg Tablet PO 80 mg DAILY ANDREA Administration Clopidogrel Bisulfate 75 mg 10/14/20 09:00 10/14/20 08:11 Clopidogrel 75 Mg Tablet PO 75 mg DAILY ANDREA Administration Enoxaparin Sodium 70 mg 10/14/20 05:59 10/14/20 07:38 Enoxaparin 80 Mg/0.8 Ml Syringe SUBCUT Not Given Q12H ANDREA Propofol 1,000 mg in 100 mls @ 0 mls/hr 10/14/20 02:15 10/14/20 12:06 Diprivan IV 25 mcg/kg/min .Q0M ANDREA 10.2 mls/hr Administration Protocol Per Protocol Fentanyl 1,000 mcg/ Sodium 100 mls @ 0 mls/hr 10/14/20 02:15 10/14/20 12:06 Chloride IV 100 mcg/hr .Q0M ANDREA 10 mls/hr Administration Protocol Per Protocol Dopamine HCl/Dextrose 400 mg in 250 mls @ 12.757 mls/hr 10/14/20 06:30 10/14/20 11:06 Intropin Drip IV 2.5 mcg/kg/min CONT ANDREA 6.4 mls/hr Titration Protocol 5 MCG/KG/MIN Potassium Chloride 100 mls @ 25 mls/hr 10/14/20 10:15 10/14/20 10:30 K-Jose IV 10/14/20 14:14 25 mls/hr ONCE ONE Administration PFSH Acute PFSH: Medical History ASHD (arteriosclerotic heart disease) CAD (coronary artery disease) LAD stent Dyslipidemia HTN (hypertension) Shingles Surgical History S/P appendectomy S/P cholecystectomy S/P hysterectomy S/P shoulder replacement S/P shoulder surgery Stented coronary artery Family History Father CAD (coronary artery disease) Myocardial infarction Sister CAD (coronary artery disease) Mother Hypertension Social History Smoking and tobacco status: never smoked Household members: spouse Marital status: Vitals/I&O/Wt Last Vital Signs Temp 98.2 F 10/14/20 01:35 Pulse 53 L 10/14/20 11:01 Resp 14 10/14/20 11:10 BP 122/71 10/14/20 06:08 Pulse Ox 98 10/14/20 11:10 10/13/20 10/14/20 10/14/20 22:59 06:59 14:59 Intake Total 24.129 / 24.129 1306.374 / 1306.374 Balance 24.129 / 24.129 1306.374 / 1306.374 Weight last 48 hrs Weight 150 lb Physical Exam Narrative: EXAM NARRATIVE: GENERAL: Patient is alert, awake and oriented x3. NECK: No jugular vein distension. HEENT: No cyanosis. No icterus. No pallor. HEART: Regular S1 and S2. No murmur, rub or gallop. LUNGS: Clear to auscultate bilaterally. ABDOMEN: Soft, nontender and nondistended. Positive bowel sounds. No guarding, r ebound or tenderness. CENTRAL NERVOUS SYSTEM: Grossly nonfocal. EXTREMITIES: Lower extremities without edema bilaterally. Urinary Catheter Management^: Pierson: Cath Placed During This Visit: yes Reason for Continuing Indwelling Catheter: Accurate Measurement of Urinary Output in Critically Ill Patients Urinary Catheter Date of Insertion: 10/14/20 Urinary Catheter Time of Insertion: 02:16 Data Micro: Micro: Microbiology 10/14/20 08:35 Gram Stain - Final Sputum - Endotrac heal Tube Aspirate A&P Assessment and plan (1) NSTEMI (non-ST elevated myocardial infarction): Patient had event of PEA arrest etiology could be multifactorial, rule out PE sepsis electrolyte derangement will consider coronary angiogram once stable and rule out for other causes. For now continue anticoagulation and serial EKGs no arrhythmia noted on the telemetry EKG did not show any acute ST elevations requiring urgent left heart cath. Status: Acute (2) PEA (Pulseless electrical activity): As defined above it could be of multifactorial continue to manage and rule out other causes of her PEA before proceeding with left heart cath. We will assess LV function and any structural problem Status: Acute (3) CHF (congestive heart failure): Not appear to be volume overloaded. Continue to monitor. Status: Acute Qualifiers: Heart failure chronicity: acute Heart failure type: unspecified Qualified Code(s): I50.9 - Heart failure, unspecified (4) Hypokalemia: Will replenish. Status: Acute (5) Bradycardia: Continue dopamine currently she is in 60s Status: Acute Consult Attestations Medical Necessity Statement: Patient require continuation hospitalization for above defined care. Coding Level of Care Code New Pt Acute Conveyor Line Battery Charger for Chg Fwd Patient Type New Medical Decision Making High Complexity Diagnoses NSTEMI (non-ST elevated myocardial infarction) I21.4 PEA (Pulseless electrical activity) I46.9 CHF (congestive heart failure) I50.9 Heart failure chronicity: acute Heart failure type: unspecified Hypokalemia E87.6 Bradycardia R00.1
--- NOTE | 2020-10-14 13:24 | PC.CHAP ---
Pastoral Care Encounter/Spiritual Assessment Type of Contact [] Declined lead software qa engineer visit [] Patient/Family/Request visit [] Outpatient visit [] Follow-up visit [] Physician referral [] Code/Alert [XX] Routine visit [] Staff referral [] Actively dying [] Patient sleeping [] Family support [] [] Out of room [] Palliative care [] [] Receiving care in room [] Pre-surgical visit [] Trauma [] Long length of stay [] ICU visit [XX] Other: met with son and daughter of pt Relational/Emotional Strength [] Patient feels connected with others/family/visitors/staff [] Distress [] Loneliness/isolation [] Abandonment Spirituality of Patient [] Person of Monique [] Attends Religion of their Monique [] Believes in Prayer [] Reads Bible or Presybeterian materials [] There are Spiritual issues to be addressed Tourist Home Keeper Interventions [] Prayer [XX] Active listening [XX] Non-anxious presence [] Spiritual/emotional support [] Crisis/trauma care [] Spiritual counseling [] Bereavement support [] Provided bereavement packet [] Provided Bible/devotional materials [] Provided toy/stuffed animal, coloring book to patient or family member [] Provided Communion [] Anointing/[place] [] Salvation [] Completed spiritual assessment [] Other: Impact on Illness or Injury [] Angry [] Fearful [] Anxious [] Often cries [] Exhaustion [] Unable to work [] Unable to attend zoroastrian [] Unable to walk/stand [] Unable to read [] Unable to drive [] Unable to eat/drink [] Unable to sleep [] Unable to be with family [] Patient intubated [] Other: Summary: Tourist Home Keeper was en route to [facility] but saw individiual crying outside of ICU. Entered ICU to learn if pastoral care services could be of assistance. Dr. Kent was finishing up talking with family. Tourist Home Keeper listened and then visited with son and daughter. Tourist Home Keeper visit appreciated and they know to call as needed. Time spent with patient: 15 mins
--- NOTE | 2020-10-14 14:00 | PC.NURSE ---
pt family at bedside. pt family wishes to change code staus to AND. Dr. Hayward notified. awaiting new orders will monitor.
[2020-10-14 20:31] LABS: Anion Gap 17.4 (5-19); Blood Urea Nitrogen 22 mg/dL (8-23); Calcium 8.7 mg/dL (8.5-10.5); Carbon Dioxide 23 mmol/L (22-29); Chloride 102 mmol/L (98-107); Creatinine Clr Calc Pharmacy 38.2727; Glucose 112 mg/dL (65-115); Osmolality Calculated 290 mOsm/kg (285-295); Potassium 4.4 mmol/L (3.5-5.1); Sodium 138 mmol/L (136-145)
[2020-10-15] VITALS (60 sets, daily range): BP systolic 76–143; BP diastolic 41–101; PULSE 60–151; RESP 12–40; TEMP 36.2–37.8; O2SAT 40–97
--- NOTE | 2020-10-15 00:50 | PC.NURSE ---
ASSUMING CARE 1900 Patient is resting in bed on mechanical ventilation, 8.0 tube, 23 cm at lip, FiO2 24%, TV 400, Rate 12, PEEP 5. Patients daughter is at bedside. Bedside report done with SHARON Smith. Propofol running at 25 mcg/kg/min, fentanyl at 75 mcg/hour, and dopamine at 5 mcg/kg/min. No acute issues during day shift.
[2020-10-15] MEDS: DOPamine drip 400 MG/250 ML PREMIX 12.8 MG IV (00:56)
--- NOTE | 2020-10-15 02:28 | PC.NURSE ---
CATH CANCELED Dr. Bell called unit to check on patients potassium level and to see if echocardiogram was done, not reported yet. Gave order for BMP and to call him with potassium results. Dr. Bell notified of potassium results within normal at 4.4. He read results of echocardiogram and gave nurse orders to cancel left heart cath procedure scheduled for 10/15/2020 due to results of echo and new plan of care.
[2020-10-15 03:50] LABS: Basophils # 0.1 10^3/uL (0.0-0.1); Basophils % 0.4 %; Eosinophils # 0.1 10^3/uL (0.0-0.8); Eosinophils % 0.4 %; Hematocrit 40.1 % (37.0-47.0); Hemoglobin 12.6 g/dL (11.5-15.3); Lymphocytes # 2.1 10^3/uL (0.8-4.8); Lymphocytes % 14.5 %; Mean Corpuscular HGB Conc 31.4 g/dL (30.0-36.0); Mean Corpuscular Hemoglobin 28.8 pg (28.0-34.0); Mean Corpuscular Volume 91.6 fL (81-99); Monocytes # 1.7 10^3/uL (0.2-0.9); Monocytes % 11.6 %; Neutrophils # 10.39 10^3/uL (1.8-7.7); Neutrophils % 72.7 %; Nucleated Red Blood Cells % 0 %; Platelet Count 178 10^3/cmm (130-400); Red Blood Count 4.38 10^6/uL (4.1-5.3); Red Cell Distribution Width 15.9 % (12.1-15.1); White Blood Count 14.3 10^3/uL (4.0-10.0)
--- NOTE | 2020-10-15 04:00 | XRR_ITS ---
PROCEDURE INFORMATION: Exam: XR Chest Exam date and time: 10/15/2020 4:25 AM Age: 85 years old Clinical indication: Device placement; Ett placement (vent status); Patient HX: F/u post code w et and og in place; Additional info: Follow up pulmonary edema TECHNIQUE: Imaging protocol: XR of the chest. Views: 1 view. COMPARISON: CR XR chest 1V portable [id number] 10/14/2020 2:11 AM FINDINGS: Tubes, catheters and devices: An endotracheal tube is placed with its tip approximately 3.7 cm from the lidia. Transcutaneous pacemaker lead overlies the left heart border. EKG leads overlie the chest. Nasogastric tube is present with its tip in the proximal stomach. Lungs: There are strandy opacities present lower hemithoraces bilaterally likely representing atelectasis. Calcified granuloma seen in the right lower hemithorax. Pleural spaces: The left hemidiaphragm is obscured likely secondary to a small left pleural effusion. Heart/Mediastinum: Unremarkable. No cardiomegaly. Bones/joints: Unremarkable. XR/XR chest 1V portable [id number] IMPRESSION: 1. Endotracheal tube tip 3.7 cm from the lidia. 2. Orogastric tube tip at least in proximal stomach. 3. Small left pleural effusion 4. Strandy opacities in the lower hemithoraces likely represents atelectasis.
[2020-10-15 05:25] LABS: ABG PCO2 41.5 mmHg (35-45); ABG PH Result 7.43 (7.35-7.45); Arterial Blood Gas Hematocrit 40.6 % (37-47); Blood Gas Allen Test Pos; Blood Gas Sample Type Arterial; HCO3 ABG 27.6 mmol/L (22-26); PO2 ABG 57.2 mmHg (80.0-100.0)
[2020-10-15 05:28] LABS: Blood Gas Sample Site Radial, right; Oxygen Device VENT
[2020-10-15 05:30] LABS: Blood Gas Drawn By BISJE; Blood Gas Vent Mode CMV
[2020-10-15] MEDS: enoxaparin 80 mg/0.8 mL Syringe 70 MG SUBCUT (05:35)
--- NOTE | 2020-10-15 05:41 | PC.NURSE ---
URINE OUTPUT Dr. Nugent notified of urine output.
[2020-10-15 06:05] LABS: Alanine Aminotransferase 51 U/L (0-33); Albumin Level 3.5 g/dL (3.5-5.2); Alkaline Phosphatase 94 IU/L (35-105); Anion Gap 16.1 (5-19); Aspartate Amino Transferase 128 U/L (0-32); Blood Urea Nitrogen 26 mg/dL (8-23); Calcium 8.6 mg/dL (8.5-10.5); Carbon Dioxide 26 mmol/L (22-29); Chloride 100 mmol/L (98-107); Globulin 2.6 g/dL (1.3-4.6); Glucose 104 mg/dL (65-115); Osmolality Calculated 291 mOsm/kg (285-295); Potassium 4.1 mmol/L (3.5-5.1); Sodium 138 mmol/L (136-145); Total Protein 6.1 g/dL (6.6-8.7)
--- NOTE | 2020-10-15 06:05 | PC.NURSE ---
SHIFT SUMMARY Uneventful shift. FiO2 turned up to 30% from 24% by RT, otherwise, ventilator settings are the same. 225 mL urine output, Dr. Nugent notified of this. No new orders at this time. Propofol remains at 25 mcg/kg/min, fentanyl at 75 mcg/hour, and dopamine is to stay at 5 mcg/kg/min per Dr. Bell. Soft wrist restraints remain on bilateral wrists.
--- NOTE | 2020-10-15 06:34 | PC.NURSE ---
DAUGHTER CALLED Daughter called and was updated on patients condition.
[2020-10-15] MEDS: propofol 1,000 MG/100 ML INJ 10.2 MG IV ×2 (07:48→17:28)
[2020-10-15] MEDS: aspirin 81 mg EC Tablet PO (08:00)
[2020-10-15] MEDS: atorvastatin 40 mg Tablet 80 MG PO (08:00)
[2020-10-15] MEDS: clopidogrel 75 mg Tablet PO (08:00)
--- NOTE | 2020-10-15 09:11 | ECG_ITS ---
Test Date: 2020-10-15 Pat Name: Vannesa Stanford Department: Room: ICU09 Gender: Female Senior Database Administrator: : [id number] Requested By: Phoebe Bell Order Number: [id number] Nikki MD: Nathaniel Nice M.D. Measurements Intervals [place] Rate: 83 P: PA: QRS: -60 QRSD: 133 T: 115 QT: 401 QTc: 474 Interpretive Statements Sinus rhythm MARKED LEFT AXIS DEVIATION [QRS AXIS < -30] INTRAVENTRICULAR CONDUCTION DELAY [130+ ms QRS DURATION] VOLTAGE CRITERIA FOR LVH [MEETS CRITERIA IN ONE OF: R(aVL), S(V1), R(V5), R(V5/V6)+S(V1)] Compared to ECG 10/14/2020 11:13:53 Intraventricular conduction delay now present Myocardial infarct finding now present Sinus bradycardia no longer present ST (T wave) deviation no longer present Electronically Signed On 10-17-2020 7:59:05 CDT by Nathaniel Nice M.D. [email or web address]
[2020-10-15] MEDS: sodium chloride 0.9% 500 ML 999 ML IV (10:14)
--- NOTE | 2020-10-15 10:26 | P.PN_ITS ---
Subjective Subjective: Interval history: Patient remained intubated blood pressure this morning dropped after which bolus was given which improved the blood pressure. Medications: Reviewed: Yes Vitals/I&O/Wt Last Vital Signs Temp 97.1 F L 10/15/20 06:00 Pulse 64 10/15/20 07:28 Resp 12 10/15/20 08:50 BP 102/57 10/15/20 04:30 Pulse Ox 93 10/15/20 08:50 10/14/20 10/15/20 10/15/20 22:59 06:59 14:59 Intake Total 180.440 / 1586.814 169.853 / 1756.667 202.19 / 202.19 Output Total 225 / 225 300 / 300 Balance 180.440 / 1586.814 -55.147 / 1531.667 -97.81 / -97.81 Weight last 48 hrs Weight 131 lb 1.6 oz Weight 157 lb 6.4 oz Weight 150 lb Physical Exam Narrative: EXAM NARRATIVE: GENERAL: Patient is alert, awake and oriented x3. NECK: No jugular vein distension. HEENT: No cyanosis. No icterus. No pallor. HEART: Regular S1 and S2. No murmur, rub or gallop. LUNGS: Clear to auscultate bilaterally. ABDOMEN: Soft, nontender and nondistended. Positive bowel sounds. No guarding, rebound or tenderness. CENTRAL NERVOUS SYSTEM: Grossly nonfocal. EXTREMITIES: Lower extremities without edema bilaterally. Urinary Catheter Management^: Pierson: Cath Placed During This Visit: yes Reason for Continuing Indwelling Catheter: Accurate Measurement of Urinary Out put in Critically Ill Patients Urinary Catheter Date of Insertion: 10/14/20 Urinary Catheter Time of Insertion: 02:16 Data : 10/15/20 02:36 10/15/20 10:31 Micro: Microbiology 10/14/20 08:35 Gram Stain - Final Sputum - Endotracheal Tube Aspirate Sputum Culture - Preliminary A&P Assessment and plan (1) NSTEMI (non-ST elevated myocardial infarction): Patient had event of PEA arrest etiology could be multifactorial, rule out PE sepsis electrolyte derangement will consider coronary angiogram once stable and rule out for other causes. For now continue anticoagulation and serial EKGs no arrhythmia noted on the telemetry EKG did not show any acute ST elevations requiring urgent left heart cath. Patient had event of myocardial infarction, she is status post CPR. She has critical aortic stenosis with advanced dementia. She is DNR. I have detailed discussion with the patient family by bedside her son and daughter. They have told me that she is not functional and cannot take care of herself independently. They were about to arrange detention for herself. Patient wishes were also that she does not want to be subject to invasive management. We would therefore continue to treat her medically. Status: Acute (2) PEA (Pulseless electrical activity): As defined above it could be of multifactorial continue to manage and rule out other causes of her PEA before proceeding with left heart cath. We will assess LV function and any structural problem Most likely secondary to critical aortic stenosis and volume shift due to dehydration. Continue to hydrate gently Status: Acute (3) CHF (congestive heart failure): Not appear to be volume overloaded. Continue to monitor. Status: Acute Qualifiers: Heart failure chronicity: acute Heart failure type: unspecified Qualified Code(s): I50.9 - Heart failure, unspecified (4) Hypokalemia: Replenished Status: Acute (5) Bradycardia: Improved. Status: Acute (6) Aortic stenosis: Patient has critical aortic stenosis with mean gradient of 48 while aortic valve area is less than 0.4 cm2, it is her main problem. I have detailed discussion with the patient and family due to advanced dementia and according to her wishes invasive strategy such as left heart cath and TAVR is not a choice. I have also discussed with TAVR team in [facility] given patient co ndition she may not be a suitable candidate we would therefore agreed to proceed with comfort care management. Status: Acute Attestations Medical Necessity Statement*: Patient require continuation hospitalization as for above defined comorbidity Coding Level of Care Code Established Pt Acute Material Stress Tester for Chg Fwd Patient Type Established History Detailed Exam Detailed Medical Decision Making Moderate Complexity Diagnoses NSTEMI (non-ST elevated myocardial infarction) I21.4 PEA (Pulseless electrical activity) I46.9 CHF (congestive heart failure) I50.9 Heart failure chronicity: acute Heart failure type: unspecified Hypokalemia E87.6 Bradycardia R00.1 Aortic stenosis I35.0
[2020-10-15 11:30] LABS: Blood Urea Nitrogen 31 mg/dL (8-23); Calcium 8.1 mg/dL (8.5-10.5); Carbon Dioxide 22 mmol/L (22-29); Chloride 102 mmol/L (98-107); Glucose 91 mg/dL (65-115); Osmolality Calculated 290 mOsm/kg (285-295); Sodium 137 mmol/L (136-145)
[2020-10-15 11:43] LABS: Anion Gap 17.3 (5-19); Potassium 4.3 mmol/L (3.5-5.1)
[2020-10-15 12:02] LABS: Troponin T (5th) Once 2671 ng/L (0-10)
--- NOTE | 2020-10-15 13:22 | PC.NUTR ---
TF assessment. Orders noted for tube feeding, however rate/goal/flushes not specified. Not running at thsi time. Spoke with nurse who is aware and states will speak with MD regarding plan for TF initiation. If TF is initiated, recommend Glucerna 1.2, beginning at 10 ml/hr, increasing by 10 ml q 8 hours to goal rate of 42 ml/hr, with 100 ml H2O flushes q6 hours. TF at goal would provide 1210 kcal, 60.5 g protein, and 1211 ml H2O.
[2020-10-15] MEDS: DOPamine drip 400 MG/250 ML PREMIX 25.5 MG IV (15:37)
[2020-10-15 15:57] LABS: Blood Gas Operator Identificat JB
--- NOTE | 2020-10-15 17:44 | P.PN_ITS ---
Subjective Subjective: Interval history: CTa chest negative for PE, afberile, hemodynamically stable Medications: Reviewed: Yes Vitals/I&O/Wt Last Vital Signs Temp 97.1 F L 10/15/20 06:00 Pulse 64 10/15/20 07:28 Resp 13 10/15/20 17:22 BP 102/57 10/15/20 04:30 Pulse Ox 96 10/15/20 17:22 10/15/20 10/15/20 10/15/20 06:59 14:59 22:59 Intake Total 169.853 / 1756.667 812.152 / 812.152 217.983 / 1030.135 Output Total 225 / 225 600 / 600 100 / 700 Balance -55.147 / 1531.667 212.152 / 212.152 117.983 / 330.135 Weight last 48 hrs Weight 59.466 kg Weight 71.395 kg Weight 68.039 kg Physical Exam Narrative: EXAM NARRATIVE: GEN: Intubated, sedated CVS: S1S2 N RS: CTA B/L all areas anteriorly Abd: Soft, nt/nd , bs+ RHIC SYSTEMS SAFETY ENGINEER: intubated, sedated EXT: No LE edema Urinary Catheter Management^: Pierson: Cath Placed During This Visit: yes Reason for Continuing Indwelling Catheter: Accurate Measurement of Urinary Output in Critically Ill Patients Urinary Catheter Date of Insertion: 10/14/20 Urinary Catheter Time of Insertion: 02:16 Data : 10/15/20 02:36 10/15/20 10:31 Micro: Microbiology 10/14/20 08:35 Gram Stain - Final Sputum - Endotracheal Tube Aspirate Sputum Culture - Preliminary A&P Assessment and plan (1) PEA (Pulseless electrical activity): Status: Acute (2) Hypokalemia: Status: Acute (3) Respiratory failure: Status: Acute Qualifiers: Chronicity: acute Respiratory failure complication: hypoxia Qualified Code(s): J96.01 - Acute respiratory failure with hypoxia (4) NSTEMI (non-ST elevated myocardial infarction): Status: Acute (5) CHF (congestive heart failure): Status: Acute Qualifiers: Heart failure type: unspecified Heart failure chronicity: acute Qualified Code(s): I50.9 - Heart failure, unspecified Additional A&P Information 85 year old lady with PMH CAD s/p multiple stents presented to the ER with c/o intractable nausea and vomiting with a background history of having chest discomfort over the past week or so per family. While in the ER noted to have witnessed cardiac arrest with PEA, underwent CPR for about 3 minutes with ROSC. Remains intubated thereafter. Currently also on pressor support with dopamine. Labs obtained post CPR with elevated troponin at 200, difficult to a certain if patient initially presented with elevated troponins pointing towards NSTEMI versus of troponin are elevated post CPR. However given several past cardiac risk factors and history, presumed cardiac event. Appreciate cardiology recommendatiosn Echocardiogram with critical , likely that cardiac event may have been precipitated by volume depletion from GI loses. Best course moving forward would be to attempt cardiac cath and evaluation for TAVR at the same time. However per additional history from family patient has advanvced dementia and poor baseline functional status, they would like to confer regarding GOC discussion while cardiology velautes appropriteness for possible TAVR. Continuing aspirin 81, Plavix, full dose Lovenox 1 mg/kg every 12 hours. Plan for today is to continue management as above for ACS, keep patient intuabted in case she needs tranfer to higher center for TAVR. If deemed not to be a good candidate for these procedures, then plan to wean sedation and wean off ventilator. Patient's code status changed to DNR/DNI in accordance with last known wishes after discussion with family. Leukocytosis increased at 14, likely post CPR, per reported history no antecedent history of fever cough or dyspnea. Chest x-ray with pulmonary edema, likely related to CHF. No pneumonia. UA without suggestion of UTI CT abdomen without signs of acute intra-abdominal issues. Attestations Medical Necessity Statement*: need for mechanical ventilation, repiratory and pressor support Critical Care Time: The high probability of a clinically significant, sudden or life threatening deterioration of the patient's [cardiac, respiratory] system(s) required my full and direct attention, intervention and personal management. The critical care time is as shown. This time is in addition to time spent performing any reported procedures but includes the following: [x] Data and vital sign review and interpretation [x] Patient assessment, examination and intervention [x] Documentation [x] Medication orders and management Critical Care Time (min): 40 Coding Level of Care Code Acute Teller Coordinator for [place] Diagnoses PEA (Pulseless electrical activity) I46.9 Hypokalemia E87.6 Respiratory failure J96.01 Chronicity: acute Respiratory failure complication: hypoxia NSTEMI (non-ST elevated myocardial infarction) I21.4 CHF (congestive heart failure) I50.9 Heart failure type: unspecified Heart failure chronicity: acute
--- NOTE | 2020-10-15 23:33 | PC.NURSE ---
Patient became hypotensive, restraints discontinued. Inserted two new peripheral IV's. Medications hooked up to new IV site. Patients blood pressure stable now.
[2020-10-16] VITALS (58 sets, daily range): BP systolic 80–164; BP diastolic 52–102; PULSE 61–99; RESP 12–31; TEMP 36.8; O2SAT 77–98; BMI 27.1
[2020-10-16] MEDS: DOPamine drip 400 MG/250 ML PREMIX 19.1 MG IV (00:51)
--- NOTE | 2020-10-16 01:39 | PC.NURSE ---
RESTRAINTS REAPPLIED Patient became more alert and attempts extubation, reapplied restraints at 0146. Order received.
[2020-10-16 02:19] LABS: Glucose Point of Care 106 mg/dL (70-110)
[2020-10-16 03:21] LABS: Basophils # 0.1 10^3/uL (0.0-0.1); Basophils % 0.5 %; Eosinophils % 0.1 %; Hematocrit 45.3 % (37.0-47.0); Hemoglobin 13.4 g/dL (11.5-15.3); Lymphocytes % 6.6 %; Mean Corpuscular HGB Conc 29.6 g/dL (30.0-36.0); Mean Corpuscular Hemoglobin 29.1 pg (28.0-34.0); Mean Corpuscular Volume 98.5 fL (81-99); Mean Platelet Volume 12.1 fL (7.4-10.4); Monocytes # 1.3 10^3/uL (0.2-0.9); Monocytes % 8.8 %; Neutrophils # 12.45 10^3/uL (1.8-7.7); Neutrophils % 83.3 %; Nucleated Red Blood Cells % 0 %; Platelet Count 155 10^3/cmm (130-400)
[2020-10-16 03:44] LABS: Alanine Aminotransferase 43 U/L (0-33); Alkaline Phosphatase 103 IU/L (35-105); Blood Urea Nitrogen 37 mg/dL (8-23); Calcium 8.4 mg/dL (8.5-10.5); Carbon Dioxide 21 mmol/L (22-29); Chloride 99 mmol/L (98-107); Globulin 3.2 g/dL (1.3-4.6); Glucose 111 mg/dL (65-115); Osmolality Calculated 287 mOsm/kg (285-295); Sodium 134 mmol/L (136-145); Total Protein 6.2 g/dL (6.6-8.7)
[2020-10-16 03:53] LABS: Anion Gap 18.1 (5-19); Potassium 4.1 mmol/L (3.5-5.1)
[2020-10-16 03:54] LABS: Aspartate Amino Transferase 95 U/L (0-32)
[2020-10-16 05:03] LABS: ABG PCO2 42.9 mmHg (35-45); ABG PH Result 7.37 (7.35-7.45); Arterial Blood Gas Hematocrit 50.9 % (37-47); Base Excess ABG -0.8 mmol/L (-2.0-2.0); Blood Gas Allen Test Pos; Blood Gas Operator Identificat JB; Blood Gas Sample Site Radial, right; Blood Gas Sample Type Arterial; HCO3 ABG 24.7 mmol/L (22-26); Oxygen Device VENT; PO2 ABG 83.4 mmHg (80.0-100.0)
[2020-10-16] MEDS: enoxaparin 80 mg/0.8 mL Syringe 70 MG SUBCUT (06:19)
[2020-10-16] MEDS: sodium chloride 0.9% 500 ML 999 ML IV (07:17)
[2020-10-16] MEDS: sodium chloride 0.9% 1,000 ML 100 ML IV (07:18)
[2020-10-16] MEDS: ipratropium-albuterol 3 mL Neb INHALATION (07:32)
[2020-10-16] MEDS: atorvastatin 40 mg Tablet 80 MG PO (08:02)
[2020-10-16] MEDS: clopidogrel 75 mg Tablet PO (08:02)
[2020-10-16] MEDS: aspirin 81 mg EC Tablet PO (08:02)
[2020-10-16] MEDS: piperacillin-tazobactam 3.375 GM in sodium chloride 0.9% (plus) 50 ML IV (10:16)
[2020-10-16] MEDS: LORazepam 2 mg/mL INJ 1 mL IVP ×2 (11:59→13:00)
[2020-10-16] MEDS: morphine 4 mg/mL SDV 1 mL IVP ×2 (11:59→13:00)
--- NOTE | 2020-10-16 14:35 | PC.NURSE ---
Addendum entered by Luis Bowman RN 10/16/20 15:37: Dr. Hayward notified of pt passing. family at bedside. [facility] contacted. Pt not a candidate. Ref#[id number] spoke with olga. [id number] Original Note: Dr. Hayward notified of pt passing. family at bedside. [facility] contacted. Pt not a canadidate. Ref#[id number] spoke with olga. [id number]
--- NOTE | 2020-10-16 15:38 | PC.NURSE ---
fentenyl wasted with SHARON Kirby Charge Nurse. approx 46cc wasted.
--- NOTE | 2020-10-16 16:02 | P.PN_ITS ---
Subjective Subjective: Interval history: Patient remains intubated IV fluid was given due to drop in blood pressure Medications: Reviewed: Yes Vitals/I&O/Wt Last Vital Signs Temp 98.3 F 10/16/20 12:00 Pulse 81 10/16/20 12:00 Resp 14 10/16/20 12:00 BP 121/72 10/16/20 12:00 Pulse Ox 94 10/16/20 12:00 10/16/20 10/16/20 10/16/20 06:59 14:59 22:59 Intake Total 274.937 / 3885.367 8367.560 / 1399.560 Output Total 150 / 850 250 / 250 Balance 124.937 / 334.940 8668.560 / 1149.560 Weight last 48 hrs Weight 158 lb Weight 131 lb 1.6 oz Weight 157 lb 6.4 oz Physical Exam Narrative: EXAM NARRATIVE: GENERAL: Patient is intubated NECK: No jugular vein distension. HEENT: No cyanosis. No icterus. No pallor. HEART: Regular S1 and S2. No murmur, rub or gallop. LUNGS: Clear to auscultate bilaterally. ABDOMEN: Soft, nontender and nondistended. Positive bowel sounds. No guarding, rebound or tenderness. CENTRAL NERVOUS SYSTEM: Grossly nonfocal. EXTREMITIES: Lower extremities without edema bilaterally. Urinary Catheter Management^: [place]: Cath Placed During This Visit: yes Reason for Continuing Indwelling Catheter: Accurate Measurement of Urinary Out put in Critically Ill Patients Urinary Catheter Date of Insertion: 10/14/20 Urinary Catheter Time of Insertion: 02:16 Data : 10/16/20 03:00 10/16/20 03:00 Micro: Microbiology 10/14/20 08:35 Gram Stain - Final Sputum - Endotracheal Tube Aspirate Sputum Culture - Preliminary Staphylococcus aureus A&P Assessment and plan (1) NSTEMI (non-ST elevated myocardial infarction): Patient had event of PEA arrest etiology could be multifactorial, rule out PE sepsis electrolyte derangement will consider coronary angiogram once stable and rule out for other causes. For now continue anticoagulation and serial EKGs no arrhythmia noted on the telemetry EKG did not show any acute ST elevations requiring urgent left heart cath. Patient had event of myocardial infarction, she is status post CPR. She has critical aortic stenosis with advanced dementia. She is DNR. I have detailed discussion with the patient family by bedside her son and daughter. They have told me that she is not functional and cannot take care of herself independently. They were about to arrange custodial for herself. Patient wishes were also that she does not want to be subject to invasive management. We would therefore continue to treat her medically. Patient is not a suitable candidate for TAVR or invasive strategy with left heart cath. After discussion with the family by bedside both daughter and son and as per the son wishes patient is DO NOT RESUSCITATE. Continue medical management Status: Acute (2) PEA (Pulseless electrical activity): As defined above it could be of multifactorial continue to manage and rule out other causes of her PEA before proceeding with left heart cath. We will assess LV function and any structural problem Most likely secondary to critical aortic stenosis and volume shift due to dehydration. Continue to hydrate gently Currently in sinus rhythm Status: Acute (3) CHF (congestive heart failure): Not appear to be volume overloaded. Continue to monitor. Status: Acute Qualifiers: Heart failure type: unspecified Heart failure chronicity: acute Qualified Code(s): I50.9 - Heart failure, unspecified (4) Hypokalemia: Replenished Status: Acute (5) Bradycardia: Improved. Status: Acute (6) Aortic stenosis: Patient has critical aortic stenosis with mean gradient of 48 while aortic valve area is less than 0.4 cm2, it is her main problem. I have detailed discussion with the patient and family due to advanced dementia and according to her wishes invasive strategy such as left heart cath and TAVR is not a choice. I have also discussed with TAVR team in [facility] given patient con dition she may not be a suitable candidate we would therefore agreed to proceed with comfort care management. Patient does not candidate for aortic valve replacement. 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
--- NOTE | 2020-10-16 18:05 | P.DES_ITS ---
Discharge Providers DDS Date of Admission: 10/14/20 05:20 Date Summary Completed: 10/17/20 Attending Provider at Admission: Phoebe Nugent MD Time of : 14:22 Attending Provider at Discharge: Nina Hayward MD Primary Care Provider: DO YRIS Sargent Diagnoses Hospital Diagnoses (1) NSTEMI (non-ST elevated myocardial infarction): (2) PEA (Pulseless electrical activity): (3) CHF (congestive heart failure): Qualifiers: Heart failure chronicity: acute Heart failure type: unspecified Qualified Code(s): I50.9 - Heart failure, unspecified (4) Hypokalemia: (5) Bradycardia: (6) Aortic stenosis: Reason for Visit Reason for Visit: n/v Summary Date and Time of Date of : 10/16/20 Time of : 14: Summary Summary: 85 year old lady presented with nausea,vomiting, had a witnessed arrest in ER, underwent CPR for 3 min with ROSC. Diagnostic evaluation suggestive of NSTEMI, in a background of severe aortic stenosis. Cardiology was consulted. In view of severe underlying dementia and oter comorbidites, patient not considered a good candidate for TAVR as unlikely to add overall meaningful quality of life. In accordance with her last known wishes, her family incl , son and daughter elected to proceed with terminal extubation and comofrt care measures only. She was extubated on 10/16 in late morning and at 14:22. Her children were at bedside. Additional Data Confirmation of as documented by pronouncing clinician: no pulse, no respirations, no heart sounds and pupils fixed and dilated Family: at bedside Additional persons at bedside: nursing staff Attending/PCP notified?: I am attending Was code activated?: No Autopsy requested?: No Advance directives?: Yes Hospice patient?: No Discharge Plan Discharge Patient Disposition: At Medical Facility Condition: Critical Prescriptions: No Action atenolol 50 mg tablet 50 mg PO BID RF: 0 fluoxetine 20 mg tablet 20 mg PO DAILY RF: 0 cholecalciferol (vitamin D3) 4,000 unit tablet 4,000 unit PO DAILY RF: 0 donepezil 5 mg tablet 5 mg PO DAILY RF: 0 Aspir-81 81 mg Tablet,Delayed Release (Dr/Ec) 81 mg PO DAILY RF: 0 irbesartan 300 mg tablet 300 mg PO DAILY RF: 0 Referrals: Shyam Dumont DO [Primary Care Provider] - Patient Instructions: Opioid Safety Probable Cause of Probable cause of : Cardiac arrest DS Attestations Time Spent in /Discharge Care*: greater than 30 min Quality - AMI: AMI present?: Yes Quality - Stroke: CVA present?: No Quality - VTE: VTE present?: No Coding Level of Care Code Acute [employer] for [facility] Fwd Diagnoses NSTEMI (non-ST elevated myocardial infarction) I21.4 PEA (Pulseless electrical activity) I46.9 CHF (congestive heart failure) I50.9 Heart failure chronicity: acute Heart failure type: unspecified Hypokalemia E87.6 Bradycardia R00.1 Aortic stenosis I35.0
== END 2020-10-16 16:15 | disposition expired ==
LOC: ER 01:47 → ICU 05:49
PROVIDERS: Internal Medicine Cardiovascular Disease; Admitting Provider Internal Medicine; Emergency Provider Emergency Medicine; PCP Internal Medicine; Visit Provider Student in an Organized Health Care Education/Training Program
DX: I21.4 Non-ST elevation (NSTEMI) myocardial infarction (principal); J96.02 Acute respiratory failure with hypercapnia; J96.01 Acute respiratory failure with hypoxia; I16.1 Hypertensive emergency; I25.10 Atherosclerotic heart disease of native coronary artery without angina pectoris; Z95.5 Presence of coronary angioplasty implant and graft; E78.5 Hyperlipidemia, unspecified; I11.0 Hypertensive heart disease with heart failure; I50.9 Heart failure, unspecified; Z96.619 Presence of unspecified artificial shoulder joint; E87.6 Hypokalemia; I46.9 Cardiac arrest, cause unspecified; I95.9 Hypotension, unspecified; I45.10 Unspecified right bundle-branch block; R00.1 Bradycardia, unspecified; E86.0 Dehydration; I35.0 Nonrheumatic aortic (valve) stenosis; Z66 Do not resuscitate; Z51.5 Encounter for palliative care; F03.90 Unspecified dementia, unspecified severity, without behavioral disturbance, psychotic disturbance, mood disturbance, and anxiety
CPT/HCPCS: 31500; 36415; 36416; 36600; 51702; 70450; 71045; 71275; 74177; 80048; 80051; 80053; 81003; 82330; 82550; 82803; 82805; 82962; 83605; 83690; 83735; 83880; 84439; 84443; 84481; 84484; 85025; 85378; 86140; 87070; 87077; 87186; 87205; 87426; 87804; 93005; 93306; 94002; 94003; 94640; 94799; 96365; 96366; 96367; 96368; 96372; 99291; J0171; J0330; J1265; J1650; J1940; J2060; J2270; J2543; J2704; J3010; J3475; J3480; J3490; J7030; J7040; Q9967